=== PATIENT | female | born 1995 ===

== ENCOUNTER 2022-09-28 00:07 | Emergency (ER) | payer BC ==
[2022-09-28 00:13] VITALS: BP 119/77; PULSE 72; RESP 17; TEMP 97.4; BMI 35.1
[2022-09-28] MEDS ORDERED: FAMOTIDINE 10 MG TABLET PO ONE (00:22)
[2022-09-28] MEDS ORDERED: predniSONE 20 MG TABLET (UD) PO ONE (00:22)
[2022-09-28] MEDS ORDERED: predniSONE 20 MG TABLET (UD) ONE (00:25)
[2022-09-28] MEDS ORDERED: FAMOTIDINE 20 MG TABLET ONE (00:26)
== END 2022-09-28 00:46 | disposition home or self-care (01) ==
LOC: FER 00:07
DX: L50.0 Allergic urticaria (principal); T78.40XA Allergy, unspecified, initial encounter; T78.3XXA Angioneurotic edema, initial encounter
CPT/HCPCS: 99283-25

== ENCOUNTER 2023-02-13 00:17 | Emergency (ER) | payer BC ==
[2023-02-13 00:25] VITALS: BP 114/74; PULSE 78; RESP 16; TEMP 98; BMI 36.8
[2023-02-13] MEDS ORDERED: FAMOTIDINE 20 MG TABLET PO ONE (00:28)
[2023-02-13] MEDS ORDERED: FAMOTIDINE 20 MG TABLET ONE (00:28)
[2023-02-13] MEDS ORDERED: diphenhydrAMINE HCL 25 MG CAPSULE (FP) PO ONE (01:01)
[2023-02-13] MEDS ORDERED: diphenhydrAMINE HCL 12.5 MG/5 ML UNIT-DOSE CUPS ONE (01:02)
[2023-02-13] MEDS ORDERED: diphenhydrAMINE HCL 12.5 MG/5 ML UNIT-DOSE CUPS PO ONE (01:07)
== END 2023-02-13 01:13 | disposition home or self-care (01) ==
LOC: FER 00:17
PROC: 3E023GC Introduction of Other Therapeutic Substance into Muscle, Percutaneous Approach (ICD-10-PCS; principal; 2023-02-13)
DX: L50.0 Allergic urticaria (principal)
CPT/HCPCS: 99284-25